=== PATIENT | female | born 1990 | race Caucasian/White ===

== ENCOUNTER 2018-08-23 15:10 | Emergency (ER) | payer MEDICARE, MEDICAID ==
[~2018-08-23] VITALS: Ht 177.8 cm; Wt 8.2 kg
[~2018-08-23 15:10] MED LIST: ACET1TAB12 PO; ALPR-624 PO; CANNABIS; FENTANYL PATCH; HYDR2TAB28 PO; MECL-111 PO; NEOM10SO7 OT; PHE12.5T PO; PROM25SU46 RC
[2018-08-23 15:22] VITALS: BP 123/72
[2018-08-23] MEDS ORDERED: CEPH250T PO (17:10)
== END 2018-08-23 17:31 | disposition home or self-care (01) ==
LOC: ER 15:11
DX: H92.01 Otalgia, right ear (principal); I10 Essential (primary) hypertension; J45.909 Unspecified asthma, uncomplicated; F12.90 Cannabis use, unspecified, uncomplicated; F15.90 Other stimulant use, unspecified, uncomplicated; Z98.890 Other specified postprocedural states; Z91.040 Latex allergy status; Z88.8 Allergy status to other drugs, medicaments and biological substances; Z79.899 Other long term (current) drug therapy; Z91.018 Allergy to other foods
CPT/HCPCS: 99283

== ENCOUNTER 2018-11-02 21:02 | Emergency (ER) | payer MEDICARE, MEDICAID ==
[~2018-11-02] VITALS: Ht 177.8 cm; Wt 90.0 kg
[2018-11-03] MEDS ORDERED: CefTRIAXone 250MG inj IM ONE (00:10)
[2018-11-03] MEDS ORDERED: CefTRIAXone 250MG IM Kit w/LIDOcaine IM ONE (00:20)
[2018-11-03] MEDS ORDERED: SULF1TAB49 PO (00:21)
[2018-11-03] MEDS ORDERED: CEPH-572 PO (00:21)
--- NOTE | 2018-11-03 00:24 | NUR ---
RT BREAST I&D BY Jeremias PEARSON, DRESSED WITH 4X4 GUAZE AND PAPER TAPE, PT SIN WELL
--- NOTE | 2018-11-03 00:26 | NUR ---
Note arie in EDM - 11/03/18 at 0042 by LUIS 8 cc of normal ss and 2x2 gauze used on the left breast to clean ins. Patient tolerated the cleaning well. 4x4 gauze was folded in half and plazed in a verticle fashion and placed over the ins and areola. Paper tape was used to hold such gauze in place. Again, patient tolerated the placement well.
[2018-11-03 00:31] VITALS: BP 130/80
--- NOTE | 2018-11-03 00:42 | NUR ---
8 cc of normal ss and 2x2 gauze used on the right breast to clean ins. Patient tolerated the cleaning well. 4x4 gauze was folded in half and plazed in a verticle fashion and placed over the ins and areola. Paper tape was used to hold such gauze in place. Again, patient tolerated the placement well. corrected on 10/30/2018 at 0043
== END 2018-11-03 00:34 | disposition home or self-care (01) ==
LOC: ER 21:02
DX: N61.1 Abscess of the breast and nipple (principal); I10 Essential (primary) hypertension; J45.909 Unspecified asthma, uncomplicated; F12.90 Cannabis use, unspecified, uncomplicated; F15.90 Other stimulant use, unspecified, uncomplicated; Z98.890 Other specified postprocedural states; Z91.040 Latex allergy status; Z91.018 Allergy to other foods; Z79.2 Long term (current) use of antibiotics; Z79.899 Other long term (current) drug therapy
CPT/HCPCS: 10060; 96372; 99283; J0696

== ENCOUNTER 2019-01-24 21:22 | Emergency (ER) | payer MEDICARE, MEDICAID ==
[~2019-01-24] VITALS: Ht 177.8 cm; Wt 92.0 kg
[~2019-01-24 21:22] MED LIST changes: -PHE12.5T PO; +PROM12.512 PO
[2019-01-24 21:37] VITALS: BP 168/75
[2019-01-24] MEDS ORDERED: HYDR-4353 PO (22:39)
== END 2019-01-24 23:07 | disposition home or self-care (01) ==
LOC: ER 21:26
DX: S92.521A Displaced fracture of middle phalanx of right lesser toe(s), initial encounter for closed fracture (principal); I10 Essential (primary) hypertension; J45.909 Unspecified asthma, uncomplicated; F12.90 Cannabis use, unspecified, uncomplicated; Z79.899 Other long term (current) drug therapy; Z88.8 Allergy status to other drugs, medicaments and biological substances; Z98.890 Other specified postprocedural states; Z91.040 Latex allergy status; Z91.018 Allergy to other foods; W22.8XXA Striking against or struck by other objects, initial encounter; Y93.89 Activity, other specified; Y92.89 Other specified places as the place of occurrence of the external cause; Y99.8 Other external cause status
CPT/HCPCS: 73660; 99283

== ENCOUNTER 2020-10-01 20:49 | Emergency (ER) | payer MEDICARE, MEDICAID ==
[~2020-10-01] VITALS: Ht 177.8 cm; Wt 109.1 kg
[~2020-10-01 20:49] MED LIST changes: -MECL-111 PO; +MECL-159 PO; -PROM25SU46 RC; +PROM25SU9 RC
[2020-10-01 21:03] VITALS: BP 182/102
--- NOTE | 2020-10-01 22:13 | NUR ---
R ANKLE WRAPPED IN SHANNON WRAP AND CRTUCHES TRAINING DONE
== END 2020-10-01 22:18 | disposition home or self-care (01) ==
LOC: ER 20:50
DX: S90.31XA Contusion of right foot, initial encounter (principal); M79.671 Pain in right foot; I10 Essential (primary) hypertension; J45.909 Unspecified asthma, uncomplicated; F41.9 Anxiety disorder, unspecified; F17.200 Nicotine dependence, unspecified, uncomplicated; F12.90 Cannabis use, unspecified, uncomplicated; F15.90 Other stimulant use, unspecified, uncomplicated; F11.90 Opioid use, unspecified, uncomplicated; F19.90 Other psychoactive substance use, unspecified, uncomplicated; Z98.890 Other specified postprocedural states; Z91.040 Latex allergy status; Z91.018 Allergy to other foods; Z88.8 Allergy status to other drugs, medicaments and biological substances; Z79.2 Long term (current) use of antibiotics; Z79.899 Other long term (current) drug therapy; W50.0XXA Accidental hit or strike by another person, initial encounter; Y93.89 Activity, other specified; Y92.89 Other specified places as the place of occurrence of the external cause; Y99.8 Other external cause status
CPT/HCPCS: 73630; 99283